=== PATIENT | female | born 1955 | race Caucasian/White ===

== ENCOUNTER 2024-03-07 07:32 | Outpatient (CLI) | payer MEDICARE, SELFPAY ==
--- NOTE | ~2024-03-07 | XR_ITS ---
Right foot Technique: AP, oblique, and lateral views were obtained. Clinical History: Pain Findings: No acute fracture or dislocation is seen. Osseous alignment is anatomic. There is mild dege nerative change of the first MTP joint and interphalangeal joint of the great toe. Soft tissues are u nremarkable. Impression: Mild degenerative changes of the great toe, as detailed above. Reviewed, dictated and finalized at location M. Impression: Mild degenerative changes of the great toe, as detailed above.
--- NOTE | ~2024-03-07 | XR_ITS ---
XR knee RT 3V 03/07/2024 07:56 Indication: Right knee pain Procedure: 3 views right knee Comparison: No prior studies for comparison. Findings: There is anatomic alignment. No fracture, subluxation or dislocation. No joint effusion. Mi ld patellofemoral compartment osteoarthritis. Impression: 1: Mild patellofemoral compartment osteoarthritis. Reviewed, dictated and finalized at location B. Impression: 1: Mild patellofemoral compartment osteoarthritis.
== END 2024-03-07 07:33 ==
LOC: MICIMG 07:36
DX: M79.671 Pain in right foot (principal); M17.11 Unilateral primary osteoarthritis, right knee
CPT/HCPCS: 73562; 73630

== ENCOUNTER 2025-06-17 07:30 | Outpatient (CLI) | payer MEDICARE, SELFPAY ==
--- NOTE | ~2025-06-17 | MM_ITS ---
EXAMINATION: MM screening yuliet BI w emmanuel HISTORY: Screening TECHNIQUE: Craniocaudal and mediolateral oblique 3-D tomosynthesis images were obtained and synthetic 2-D images were generated. CAD analysis was submitted and interpreted. COMPARISON: Comparison to multiple prior studies sequentially, with oldest reviewed study dated , 05/23/2007 BREAST PARENCHYMAL COMPOSITION: There are scattered areas of fibroglandular density. FINDINGS: There is no evidence of suspicious mass, calcification, or architectural distortion to suggest malignancy in either breast. IMPRESSION: 1. No mammographic evidence of malignancy. 2. Recommend routine screening mammography in one year. BI-RADS Category 1: Negative Reviewed, dictated and finalized at location B.
--- OUTSIDE RECORDS SUMMARY | 2025-06-17 07:34 | XMS_ITS | Clinical Summary ---
Author Organization [facility] Address [address] [place] [id number] Care Team Providers Care Commanding Officer Garage Name Role Phone Xu Capone MD Primary Care Provider [phone] [phone] Allergies Active Allergy Reactions Criticality Noted Date Comments Erythromycin Rash Medium 02/14/2017 Penicillins Rash Medium 02/14/2017 Medications levothyroxine (SYNTHROID, LEVOTHROID) 75 mcg tablet Take 75 mcg by mouth daily. Active Active Problems Problem Noted Date Diagnosed Date Arthritis of carpometacarpal (CMC) joint of left thumb 02/20/2017 Medical History Medical History Date Comments Hx Other Medical Hypothyroidism Hx Other Medical Cervical Degene rative Disc Disease Hx Other Medical Multinodular th yroid Hx Other Medical Post traumatic stress disorder Depression Depression Hx Other Medical Anxiety Ligament tear 08/1973 Thyroid disease Social History Tobacco Use Types Packs/Day Years Used Date Smoking Tobacco: Never Comments Unknown Sex and Gender Information Value Date Recorded Sex Assigned at Not on file 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 Gender Identity Not on file Sexual Orientation Not on file Obstetrics History Last Filed Vital Signs Vital Sign Reading Time Taken Comments Blood Pressure 115/72 02/14/2017 8:41 AM CDT Pulse 73 02/14/2017 8:41 AM CDT Temperature - - Respiratory Rate - - Oxygen Saturation - - Inhaled Oxygen Concentration - - Weight 59 kg (130 lb) 02/14/2017 8:41 AM CDT Height 160 cm (5' 3) 02/14/2017 8:41 AM CDT Body Mass Index 23.03 02/14/2017 8:41 AM CDT Plan of Treatment Not on file Insurance [facility] MEDICARE ADVANTAGE Care Teams Commanding Officer Garage Relationship Specialty Start Date End Date Xu Capone MD [address] [place] [phone] PCP - General 01/25/17
--- OUTSIDE RECORDS SUMMARY | 2025-06-17 07:35 | XMS_ITS | Clinical Summary ---
Author Organization [facility] Address [address] [place] [address] Care Team Providers Care Communication Clerk Name Role Phone Sumi Gottlieb MD Primary Care Provider [phone]- [phone] Allergies Active Allergy Reactions Criticality Noted Date Comments Bupropion Rash Low 04/07/2022 Celecoxib Other (see comment) 04/07/2022 CAUSES HEART PAIN Codeine Nausea and Vomiting 04/07/2022 Diclofenac Other (see comment) 04/07/2022 HEART PAIN Erythromycin Rash Medium 02/14/2017 Hydrocodone Itching 04/07/2022 ITCHING AND RASH Cephalexin Other (see comment) 04/07/2022 PT DOES NOT KNOW HER REACTION TO THIS DRUG Levothyroxine Other (see comment) 04/07/2022 RESTLESSNESS, NERVOUSNESS, SLEEPLESSNESS Penicillins Rash Medium 02/14/2017 Methylphenidate Other (see comment) 04/07/2022 CAUSES HEART PAIN Sulfamethoxazole-Trimeth oprim Headache 04/07/2022 Medications SYNTHROID 50 MCG tablet Take 1 tablet (50 mcg total) by mouth daily. 2 Active triamcinolone 0.1 % cream APPLY A THIN LAYER TO THE AFFECTED AREA(S) TOPICALLY TWICE DAILY NEEDED 1 Active Active Problems Problem Noted Date Diagnosed Date Osteoarthritis of left hip, unspecified osteoart hritis type 07/27/2023 Spondylolisthesis of lumbar region 03/10/2022 Facet hypertrophy of lumbar region 03/10/2022 Other intervertebral disc degeneration, lumbar r egion 03/10/2022 Spinal stenosis, lumbar zoe on without neurogenic claudication 03/10/2022 Foraminal stenosis of lumbar region 03/10/2022 Family History Medical History Relation Comments Vitiligo Brother Stroke Father Lung Disease Mother Vitiligo Sister 1 Sleep Apnea Sister 2 Sleep Apnea Sister 3 Relation Status Comments Brother Alive Father Mother Alive Sister 1 Alive Sister 2 Alive Sister 3 Alive Social History Tobacco Use Types Packs/Day Years Used Date Smoking Tobacco: Never Smokeless Tobacco: Never Alcohol Use Standard Drinks/Week Comments Not Currently 0 (1 standard drink = 0.6 oz pur e alcohol) Education Answer Date Recorded What is the highest level of school you have completed or the highest degree you have received? 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 Pulse 64 08/08/2023 7:43 AM AIRCRAFT LAUNCH AND RECOVERY TECHNICIAN Temperature 36.6 C (97.8 F) 08/08/2023 6:53 AM AIRCRAFT LAUNCH AND RECOVERY TECHNICIAN Respiratory Rate 18 08/08/2023 7:43 AM AIRCRAFT LAUNCH AND RECOVERY TECHNICIAN Oxygen Saturation 100% 08/08/2023 7:43 AM AIRCRAFT LAUNCH AND RECOVERY TECHNICIAN Inhaled Oxygen Concentration - - Weight 59.9 kg (132 lb) 08/08/2023 6:53 AM AIRCRAFT LAUNCH AND RECOVERY TECHNICIAN Height 160 cm (5' 3) 08/08/2023 6:53 AM AIRCRAFT LAUNCH AND RECOVERY TECHNICIAN Body Mass Index 23.38 08/08/2023 6:53 AM AIRCRAFT LAUNCH AND RECOVERY TECHNICIAN Plan of Treatment Health Maintenance Due Date Last Done Comments Colorectal Cancer Screening Colonoscopy (10 Years) 1957 Hepatitis C 1975 DTaP, Tdap and Td Vaccines ( 1 - Tdap) 1976 Mammogram Screening 1997 Pneumococcal Vaccine: 50+ Ye ars (1 of 1 - PCV) 2007 Zoster Vaccines (1 of 2) 2007 Annual Medicare Wellness Visit 2022 Dexa Scan (General) 2022 COVID-19 Vaccine ( - 2024-2 6 season) 2025 Influenza Adult (#1) 2025 RSV Immunization or 60+ Years (1 - 1-dose 75+ series) 2032 Hepatitis A Vaccines Aged Out No long er eligible based on patient's age to complete this topic Meningococcal B Vaccine Aged Out No l onger eligible based on patient's age to complete this topic Meningococcal Vaccine Aged Out No jerrod pierce eligible based on patient's age to complete this topic RSV Immunizations Under 20 Months Aged Out No longer eligible based on patient's age to complete this [place] [address] [employer] U[employer] MEDICARE Care Teams Communication Clerk Relationship Specialty Start Date End Date Sumi Gottlieb MD [address] [place] [address] [place] [id number] PCP - General FAMILY PRACTICE 03/10/22
== END 2025-06-17 07:31 | disposition home or self-care (01) ==
LOC: ANHFOHIMG 07:32
DX: Z12.31 Encounter for screening mammogram for malignant neoplasm of breast (principal)
CPT/HCPCS: 77063; 77067

== ENCOUNTER 2025-07-09 09:51 | Emergency (ER) | payer MEDICARE, SELFPAY ==
--- NOTE | 2025-07-09 09:59 | PC.NURSE ---
Pt states she is going to leave, exits ED in NAD with steady gait.
--- OUTSIDE RECORDS SUMMARY | 2025-07-09 10:38 | XMS_ITS | Encounter Summary ---
Author Organization [facility] Address [address] [place] [address] Care Team Providers Care Repair Specialist Name Role Phone Sumi Gottlieb MD Primary Care Provider [phone]- [phone] Encounter Details Date Type Department Care Team (Late st Contact Info) Description 07/09/2025 10:38 AM [facility] Emergency [facility] Emergency Room [id number] [place] [id number] Social History Tobacco Use Types Packs/Day Years [...] file Not on file Not on file documented as of this encounter Plan of Treatment Not on file documented as of this encounter Visit Diagnoses Not on filedocumented in this encounter Care Teams Repair Specialist Relationship Specialty Start Date End Date Sumi Gottlieb MD [address] [place] [address] [place] [id number] PCP - General FAMILY PRACTICE 03/10/22 documented as of this encounter
--- OUTSIDE RECORDS SUMMARY | 2025-07-09 10:49 | XMS_ITS | Clinical Summary ---
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
--- OUTSIDE RECORDS SUMMARY | 2025-07-09 10:49 | XMS_ITS | Clinical Summary ---
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 [facility] Emergency Room [address] [place] [address] 07/09/2025 Travel from Last 3 Months Family History Medical History Relation Comments Vitiligo [...] Comments Blood Pressure 128/81 08/08/2023 7:43 AM MACHINE SPLITTER Pulse 64 08/08/2023 7:43 AM MACHINE SPLITTER Temperature 36.6 C (97.8 F) 08/08/2023 6:53 AM MACHINE SPLITTER Respiratory Rate 18 08/08/2023 7:43 AM MACHINE SPLITTER Oxygen Saturation 100% 08/08/2023 7:43 AM MACHINE SPLITTER Inhaled Oxygen Concentration - - Weight 59.9 kg (132 lb) 08/08/2023 6:53 AM MACHINE SPLITTER Height 160 cm (5' 3) 08/08/2023 6:53 AM MACHINE SPLITTER Body Mass Index 23.38 08/08/2023 6:53 AM MACHINE SPLITTER Plan of Treatment Health Maintenance Due Date [...] patient's age to complete this topic Insurance [facility] UHC MEDICARE Care Teams Mobile Unit Assistant Relationship Specialty Start Date End Date Sumi Gottlieb MD [address] [place], [place] [address] [address] PCP - General FAMILY PRACTICE 03/10/22
--- OUTSIDE RECORDS SUMMARY | 2025-07-09 10:49 | XMS_ITS | Encounter Summary ---
Author Organization [facility] Address [address] [place] [address] Care Team Providers Care Store Standards Associate Name Role Phone Sumi Gottlieb MD Primary Care Provider [phone]- [phone] Encounter Details Date Type Department Care Team (Latest Contact Info) Description 07/09/2025 Travel Social History Tobacco Use Types Packs/Day Years [...] on filedocumented in this encounter Care Teams Store Standards Associate Relationship Specialty Start Date End Date Sumi Gottlieb MD [address] [place], [place] [address] [address] PCP - General FAMILY PRACTICE 03/10/22 documented as of this encounter
== END 2025-07-09 10:20 | disposition left against medical advice (07) ==
DX: Z53.21 Procedure and treatment not carried out due to patient leaving prior to being seen by health care provider (principal)
CPT/HCPCS: 99199